=== PATIENT | male | born 2000 | race Caucasian/White ===

== ENCOUNTER 2019-01-06 23:47 | Emergency (ER) | payer SELFPAY ==
[~2019-01-06] VITALS: Ht 175.3 cm; Wt 131.1 kg
[2019-01-06 23:50] VITALS: Ht 175.3 cm; Wt 131.1 kg
[2019-01-07 02:46] VITALS: BP 128/72
== END 2019-01-07 02:46 | disposition home or self-care (01) ==
LOC: ED 23:47
DX: R21 Rash and other nonspecific skin eruption (principal); L29.9 Pruritus, unspecified; H02.843 Edema of right eye, unspecified eyelid; H02.846 Edema of left eye, unspecified eyelid; Z91.018 Allergy to other foods; J02.9 Acute pharyngitis, unspecified
CPT/HCPCS: J7512; Q0163